=== PATIENT | male | born 1970 | race Caucasian/White ===

== ENCOUNTER 2016-03-02 21:22 | Emergency (ER) | payer OTHER ==
--- NOTE | 2016-03-03 00:17 | DIAGNOSTIC IMAGING REPORT ---
PROCEDURE: CT ABDOMEN/PELVIS W/O CONTRAST INDICATION: Right flank pain and hematuria, initial encounter TECHNIQUE: Noncontrast axial images were obtained of the entire abdomen and pelvis with sagittal and coronal reformations. COMPARISON: CT abdomen/pelvis 07/18/2013. FINDINGS: ABDOMEN: 3 mm right UVJ calculus with mild right hydroureteronephrosis. There is a 6.7 x 6.5 x 5.6 mm proximal left ureteral calculus with mild left ureterohydronephrosis There is a punctate mid left renal nonobstructing calculus. Lung bases are clear. Heart size is normal. Contracted gallbladder with tiny calcified gallstone. Liver, pancreas, spleen and adrenal glands are normal. Normal abdominal aorta. Mild descending colon diverticulosis. PELVIS: Normal appendix. No pelvic mass, inflammatory changes or free fluid. Bones are unremarkable. IMPRESSION: 1. 3 mm right UVJ calculus with mild right hydroureteronephrosis 2. 6.7 x 6.5 x 5.6 ml in proximal left ureteral calculus with mild left hydroureteronephrosis 3. Nonobstructing punctate left renal calculus 4. Cholelithiasis 5. Diverticulosis 6. Results discussed with Dr. Rodarte All CT scans at this facility use dose modulation, iterative reconstruction, and/or weight-based dosing when appropriate to reduce radiation dose to as low as reasonably achievable.
--- NOTE | 2016-03-03 01:04 | ED NURSING NOTES ---
Clinical Report - Nurses [facility] [address] [place] [address] 03/02/2016 21:22 Patient: KELL MEDINA TRIAGE Triage time 21:37. Acuity: LEVEL 2. Chief Complaint: PAIN WITH URINATION and FREQUENCY VOIDING (Right flank pain). 21:42. Alert. SEPSIS SCREEN: Sepsis Screen. Negative (no infection suspected/documented). --21:42 Fernie Mcdonald R.N. 21:36 03/02/16. BP: 185/117. HR: 89. RR: 18. O2 saturation: 98%. Temp: 98.4 F (oral). Pain level now: 09/02. --21:42 Fernie Mcdonald R.N. Weight: 83.9 kg. Height/Length: 68 inches. BMI: 28.1. --21:40 Fernie Mcdonald R.N. Medications Adderall Oral 20 mg, daily (10mg in afternoon). Aleve Oral. Flomax Oral 0.4 mg, daily. --21:38 Fernie Mcdonald R.N. OxyCODONE HCl Oral 5 mg, as needed. --21:38 Fernie Mcdonald R.N. Medication/allergy information source: the patient. --21:42 Fernie Mcdonald R.N. Allergies Nitrous oxide . --21:38 Fernie Mcdonald R.N. History Arrived by private vehicle. Historian: patient. Accompanied by family. Primary physician (Tavares). This started yesterday. ( Patient thinks he has another kidney stone states he has passed 3 in the last couple months, also thinks he may have an UTI). Treatment [employer]: (Oxycodone, Flomax). PAST MEDICAL HX: Immunizations: up-to-date. SOCIAL HX: Never smoker. Occasional alcohol use. No drug use. No infectious disease exposure. ABUSE ASSESSMENT: No report of abuse. FALL RISK ASSESSMENT: Fall risk assessment completed. No fall risk identified. NUTRITIONAL RISK ASSESSMENT: The nutritional risk assessment revealed no deficiencies. FUNCTIONAL ASSESSMENT: Functional assessment: no impairments noted. LEARNING NEEDS ASSESSMENT: The learning needs assessment revealed no barriers. SKIN INTEGRITY ASSESSMENT: Skin integrity risk assessment completed. No skin integrity risk identified. --21:42 Fernie Mcdonald R.N. PROBLEMS: Ureterolithiasis. Urinary Calculi. Nephrolithiasis. --21:39 Fernie Mcdonald R.N. ADDITIONAL SURGERIES: no known surgeries. Interventions ID band on patient. --21:42 Fernie Mcdonald R.N. PHYSICAL ASSESSMENT Ambulatory to room. GENERAL / NEURO / PSYCH: Alert. Oriented X 4. Appears in no acute distress. HEENT: Mucous membranes are pink. RESPIRATORY: Respirations not labored. Breath sounds within normal limits. CVS: Normal heart rate and rhythm. Capillary refill less than 2 seconds. GI / : Abdomen soft. Bowel sounds within normal limits. Pain after urination that is associated with urgency and frequency. He has had frequency of urination associated with pain, burning and urgency. SKIN: Skin is warm and dry. --21:55 Valentin Banuelos R.N. NURSING PROGRESS NOTES 21:43. Patient ID band checked for patient name and birthdate: patient confirmed. Clean catch urine collected with return of yellow-colored clear urine; sample sent to lab for urinalysis. Specimen labeled in the presence of the patient. --21:43 Fernie Mcdonald R.N. Head of bed elevated. The patient is calm and resting quietly. Call light placed in reach. Side rails up x 1. Bed placed in lowest position. Brakes of bed on. --21:56 Valentin Banuelos R.N. 22:54 03/02/2016 Site #1 started via IV in the right antecubital space with an 20g angiocath; one attempt. Blood drawn: rainbow set. Labeled in the presence of the patient and sent to the lab. Saline lock flushed with 10 mL saline. --23:19 Yobani Ramon R.N. 23:27 03/02/2016 Started IV Fluids IV NS (Saline); bolus of 1000 mL wide open then over 1 hour(s) via site #1. Allergies verified and confirmed 5 rights. IV patency established. IV site checked: no pain, redness, or swelling. IV flushed thoroughly pre- and post-medication administration. --23:27 Valentin Banuelos R.N. 23:29 03/02/2016 Toradol IVP 30 mg given over 2 minute(s) via site #1. Allergies verified and confirmed 5 rights. IV patency established. IV site checked: no pain, redness, or swelling. IV flushed thoroughly pre- and post-medication administration. IVP given by RN. --23:29 Valentin Banuelos R.N. 23:29 03/02/2016 Dilaudid (HYDROmorphone HCl PF) IVP 1 mg given over 2 minute(s) via site #1. Allergies verified, confirmed 5 rights and sedative warning given to the patient. IV patency established. IV site checked: no pain, redness, or swelling. IV flushed thoroughly pre- and post-medication administration. IVP given by RN. --23:29 Valentin Banuelos R.N. The patient reports no complaints and he is calm and resting quietly. Overall patient status is improved- he states feels better. Call light placed in reach. Side rails up x 1. --00:09 Valentin Banuelos R.N. 00:08 03/03/16. BP: 148/102. HR: 97. RR: 16. O2 saturation: 93%. Pain level now: 0/10. --00:09 Valentin Banuelos R.N. DISPOSITION / DISCHARGE 01:22 03/03/16. BP: 145/91. HR: 89. RR: 16. O2 saturation: 94%. Temp: 97.8 F (oral). Pain level now: 0/10. --01:23 Valentin Banuelos R.N. Condition at departure: improved. The goals identified in the patient's plan of care were met. No learning barriers present. Discharge instructions provided and reviewed with the patient and spouse. Reviewed medication(s) side effects, precautions, dosing and course information. Prescription(s) given to the patient. Reviewed referral to a urologist. Patient verbalized understanding. Written instructions provided in [place]. The patient was discharged home and accompanied by spouse. He left the Emergency Department ambulatory and via private vehicle. Spouse driving. FALL RISK ASSESSMENT: Fall risk assessment completed. No fall risk identified. --: Valentin Banuelos R.N. 01:03/03/2016 Zofran (Ondansetron HCl) IVP 8 mg given over 2 minute(s) via site #1. Allergies verified and confirmed 5 rights. IV patency established. IV site checked: no pain, redness, or swelling. IV flushed thoroughly pre- and post-medication administration. IVP given by RN. --01: Valentin Banuelos R.N. 01:03/03/2016 Site #1 removed upon discharge. Pressure dressing applied. --01: Valentin Banuelos R.N. 01:03/03/2016 IV Fluids IV NS Discontinued: completed. Total amount infused: 1000 mL. IV patency established. IV site checked: no pain, redness, or swelling. IV flushed thoroughly. --01: Valentin Banuelos R.N. Departure time: 0124 AM. --: Valentin Banuelos R.N. Locked/Released at 03/03/2016 1:31 by Valentin Banuelos R.N.
--- NOTE | 2016-03-03 01:04 | ED CLINICAL REPORT ---
Clinical Report - Physicians/Mid Levels [facility] [address] [place] [address] 03/02/2016 21:22 Patient: KELL MEDINA Time Seen: 22:26. Arrived- By private vehicle. Historian- patient. HISTORY OF PRESENT ILLNESS Chief Complaint: FLANK PAIN. At its maximum, severity described as severe. When seen in the E.D., severity described as moderate. Modifying factors. Not worsened by anything. Not relieved by anything. It is described as "pain" and it is described as located in the left flank. This started about 3 months ago and is still present. It has been intermittent. The patient has had nausea and vomiting. No loss of appetite or diarrhea. (Pt states he was dx with a kidney stone 3 months ago. He was given Flomax at the time, and sx seemed to dianne, but would intermittently resurface. Pt states he never saw a stone pass. Pt began to have escalation of sx on the L, and was seen by his PCP, but no imaging done. Pt was treated presumptively for a stone. Pt states that now, he has a pain on the R, and is concerned about what is going on.). Similar symptoms previously: Recent medical care: Not recently seen/assessed. REVIEW OF SYSTEMS No constipation, black stools, hematemesis, difficulty with urination or pain with urination. No urinary frequency, bloody stools, fever, headache or sore throat. No blurred vision, chest pain, difficulty breathing, cough or joint pain. No skin rash, chills or back pain. All systems otherwise negative, except as recorded above. PAST HISTORY Problems: Asthma. Nephrolithiasis. Additional Surgeries: no known surgeries. Medications: OxyCODONE HCl Oral 5 mg, as needed. Adderall Oral 20 mg, daily (10mg in afternoon). Aleve Oral. Flomax Oral 0.4 mg, daily. Allergies: Nitrous oxide . SOCIAL HISTORY Never smoker. Occasional alcohol use. No drug use. ADDITIONAL NOTES The nursing notes have been reviewed. PHYSICAL EXAM Vital Signs: 03/02/2016 21:36 BP: 185/117. HR: 89. RR: 18. O2 saturation: 98%. Temp: 98.4 F. Pain level now: 09/02. Have been reviewed. Appearance: Alert. Oriented X3. No acute distress. (Pt appears moderately uncomfortable.). Eyes: Pupils equal, round and reactive to light. Eyes normal inspection. ENT: Nose normal. Neck: Normal inspection. Neck supple. CVS: Normal heart rate and rhythm. Heart sounds normal. Pulses normal. Respiratory: No respiratory distress. Breath sounds normal. Abdomen: Soft. Mild tenderness in the left lower quadrant (L flank). No guarding or rebound tenderness. Back: Normal inspection. No CVA tenderness. Skin: Skin warm and dry. Normal skin color. No rash. Normal skin turgor. Extremities: Extremities exhibit normal ROM. No lower extremity edema. Neuro: Oriented X 3. No motor deficit. No sensory deficit. LABS, X-RAYS, AND EKG Abdominal CT: Normal aorta. Normal liver, spleen, pancreas, gallbladder and adrenals. A urinary calculus is present in the right distal ureter and left proximal ureter (L hydronephrosis, 6+ mm stone; R 3 mm stone, no hydro). Appendix normal. No mass. No free fluid. No bony lesion. No diverticulitis. Study type: renal stone evaluation; abdomen and pelvis. Abdominal CT performed without contrast. The study was independently viewed by me, interpreted by the radiologist and contemporaneously by me and discussed with the radiologist. Prior studies were not available for comparison. Laboratory Tests: UA-Culture if indicated: (HAI: 03/02/2016 21:43) ( MsgRcvd 03/02/2016 21:56) Final results Test Result Flag Units (Reference) URINE COLOR YELLOW URINE APPEARANCE CLEAR URINE GLUCOSE NEGATIVE (NEGATIVE) URINE BILIRUBIN NEGATIVE (NEGATIVE) URINE KETONE NEGATIVE (NEGATIVE) URINE SPECIFIC GRAVITY 1.015 (1.010-1.030) URINE PH 7.5 (5.0-8.0) URINE PROTEIN NEGATIVE (NEGATIVE) URINE UROBILINOGEN 0.2 EU/dL (0.2-1.0) URINE NITRITE NEGATIVE (NEGATIVE) URINE BLOOD 2+ (NEGATIVE) URINE LEUK ESTERASE NEGATIVE (NEGATIVE) URINE RBC 10-25 rbc/hpf (0-1) URINE WBC 0-1 wbc/hpf (0-1) URINE EPITHELIAL CELLS 0-1 EPI/hpf (0-5) URINE BACTERIA NONE SEEN (NONE SEEN) URINE COMMENT CULT NOT INDICATED URINE CULTURES ARE SET-UP BASED ON THE FOLLOWING CRITERIA:POSITIVE NITRITEPOSITIVE LEUKOCYTE ESTERASEGREATER THAN 10 WHITE BLOOD CELLSMODERATE (2+) OR GREATER BACTERIA . Pulse Oximetry: 03/02/2016 21:36 O2 saturation: 98%. (FIO2 - room air). Interpretation: normal. PROGRESS AND PROCEDURES Course of Care: Pt was treated with IV fluids, Toradol, Dilaudid, and Zofran. He was worked up with a CT scan, and found to have bilateral ureterolithiasis; however, one of the stones was only 3mm, and was at the UVJ, and I felt that passage was imminent. I did d/w pt that the other stone is large, and may not pass spontaneously, and that it is important that pt f/u with urology. Patient counseled in person regarding the patient's stable condition, test results, diagnosis and need for follow-up. Concerns were addressed. Old medical records reviewed. Disposition: Discharged. Condition: stable and improved. CLINICAL IMPRESSION Ureterolithiasis in the right ureter and left ureter with renal colic. INSTRUCTIONS Drink plenty of fluids. (Your CT scan shows a stone on each side. The one on the right is just about to pop into the bladder, and should pass easily. The one on the left is larger (nearly 7 mm across), and is up high in your ureter. This may have trouble passing, and because of this, you will need to follow up with a urologist.). Warnings: SEDATIVE MEDICATION: You were given sedative medication during your visit. Do not drive or operate dangerous machinery for 6 hours. GENERAL WARNINGS: Return or contact your physician immediately if your condition worsens or changes unexpectedly, if not improving as expected, or if other problems arise. Your Current Medications: CONTINUE TAKING THE FOLLOWING MEDICATIONS: Adderall Oral : 20 mg daily, 10mg in afternoon. Aleve Oral. Flomax Oral : 0.4 mg daily. OxyCODONE HCl Oral : 5 mg, prn. Prescription Medications: Zofran (orally disintegrating tablets) 4 mg: take 1-2 orally every 6 hours as needed for nausea. Dispense fifteen (15). No refill. Substitution is permissible. Oxycodone/APAP 5 mg/325 mg: take 1-2 tablets orally every 4 hours as needed for pain. Dispense twenty-five (25). No refill. Understanding of the discharge instructions verbalized by patient and family. Follow-up with: Rashid Odom MD, Urology, , [address] [address]; Jose Tillman MD, Urology, , [facility] [address] [facility], [address]; Francois John MD, Urology, , [address] [address]; Ata Yan MD, Urology, , [facility] [address] [facility], [address] Follow up. Call for the next available appointment. (Electronically signed by Anabela Rodarte MD 03/07/2016 21:48)
--- NOTE | 2016-03-03 01:04 | ED ORDER SUMMARY ---
..... Patient: KELL MEDINA OrderSheet [facility] VisitID: [id number] [address] [place] [address] 45y, M Registration Date/Time: 03/02/2016 ORDER SHEET Weight: 83.9 kg Allergies: Nitrous oxide GENERAL ORDERS: UA-Culture if indicated Urgent (21:43 03/02/2016 JQuivey R.NNai per protocol) (Ack 21:56 TBergley) (0:16 HOS[address] R[address] CT Abd/Pel wo Cont Urgent (23:08 03/02/2016 Apple YE) (23:21 RFay) MEDICATION ORDERS: IV FLUIDS: Toradol IV 30 mg (NOW) (23:17 03/02/2016 Apple YE) (23:29 HOShaughnessy R.N.) Dilaudid IV 1 mg (HIGH ALERT MEDICATION, NOW) (23:17 03/02/2016 Apple YE) (23:29 HOShaughnessy R.N.) IV NS : initial bolus 1000 mL (1000 mL/hr), then none - (NOW) (23:17 03/02/2016 Apple YE) (23:27 HOShaughnessy R.N.) Zofran IV 8 mg (NOW) (01:14 03/03/2016 Apple YE) (1:23 HOShaughnessy R.N.) ORDER SHEET NOTES: [Electronically signed by Valentin Banuelos R.N. (01:31 03/03/2016)] [Electronically signed by Anabela Rodarte MD (21:48 03/07/2016)] [Electronically locked/signed by Valentin Banuelos R.N. (01:31 03/03/2016)]
--- NOTE | 2016-03-03 01:04 | ED CLINICAL REPORT ---
Clinical Report - Physicians/Mid Levels [facility] [address] [place] [address] 03/02/2016 21:22 Patient: KELL MEDINA Time Seen: 22:26. Arrived- By private vehicle. Historian- patient. HISTORY OF PRESENT ILLNESS Chief Complaint: FLANK PAIN. At its maximum, severity described as severe. When seen in the E.D., severity described as moderate. Modifying factors. Not worsened by anything. Not relieved by anything. It is described as "pain" and it is described as located in the left flank. This started about 3 months ago and is still present. It has been intermittent. The patient has had nausea and vomiting. No loss of appetite or diarrhea. (Pt states he was dx with a kidney stone 3 months ago. He was given Flomax at the time, and sx seemed to dianne, but would intermittently resurface. Pt states he never saw a stone pass. Pt began to have escalation of sx on the L, and was seen by his PCP, but no imaging done. Pt was treated presumptively for a stone. Pt states that now, he has a pain on the R, and is concerned about what is going on.). Similar symptoms previously: Recent medical care: Not recently seen/assessed. REVIEW OF SYSTEMS No constipation, black stools, hematemesis, difficulty with urination or pain with urination. No urinary frequency, bloody stools, fever, headache or sore throat. No blurred vision, chest pain, difficulty breathing, cough or joint pain. No skin rash, chills or back pain. All systems otherwise negative, except as recorded above. PAST HISTORY Problems: Asthma. Nephrolithiasis. Additional Surgeries: no known surgeries. Medications: OxyCODONE HCl Oral 5 mg, as needed. Adderall Oral 20 mg, daily (10mg in afternoon). Aleve Oral. Flomax Oral 0.4 mg, daily. Allergies: Nitrous oxide . SOCIAL HISTORY Never smoker. Occasional alcohol use. No drug use. ADDITIONAL NOTES The nursing notes have been reviewed. PHYSICAL EXAM Vital Signs: 03/02/2016 21:36 BP: 185/117. HR: 89. RR: 18. O2 saturation: 98%. Temp: 98.4 F. Pain level now: 09/02. Have been reviewed. Appearance: Alert. Oriented X3. No acute distress. (Pt appears moderately uncomfortable.). Eyes: Pupils equal, round and reactive to light. Eyes normal inspection. ENT: Nose normal. Neck: Normal inspection. Neck supple. CVS: Normal heart rate and rhythm. Heart sounds normal. Pulses normal. Respiratory: No respiratory distress. Breath sounds normal. Abdomen: Soft. Mild tenderness in the left lower quadrant (L flank). No guarding or rebound tenderness. Back: Normal inspection. No CVA tenderness. Skin: Skin warm and dry. Normal skin color. No rash. Normal skin turgor. Extremities: Extremities exhibit normal ROM. No lower extremity edema. Neuro: Oriented X 3. No motor deficit. No sensory deficit. LABS, X-RAYS, AND EKG Abdominal CT: Normal aorta. Normal liver, spleen, pancreas, gallbladder and adrenals. A urinary calculus is present in the right distal ureter and left proximal ureter (L hydronephrosis, 6+ mm stone; R 3 mm stone, no hydro). Appendix normal. No mass. No free fluid. No bony lesion. No diverticulitis. Study type: renal stone evaluation; abdomen and pelvis. Abdominal CT performed without contrast. The study was independently viewed by me, interpreted by the radiologist and contemporaneously by me and discussed with the radiologist. Prior studies were not available for comparison. Laboratory Tests: UA-Culture if indicated: (HAI: 03/02/2016 21:43) ( MsgRcvd 03/02/2016 21:56) Final results Test Result Flag Units (Reference) URINE COLOR YELLOW URINE APPEARANCE CLEAR URINE GLUCOSE NEGATIVE (NEGATIVE) URINE BILIRUBIN NEGATIVE (NEGATIVE) URINE KETONE NEGATIVE (NEGATIVE) URINE SPECIFIC GRAVITY 1.015 (1.010-1.030) URINE PH 7.5 (5.0-8.0) URINE PROTEIN NEGATIVE (NEGATIVE) URINE UROBILINOGEN 0.2 EU/dL (0.2-1.0) URINE NITRITE NEGATIVE (NEGATIVE) URINE BLOOD 2+ (NEGATIVE) URINE LEUK ESTERASE NEGATIVE (NEGATIVE) URINE RBC 10-25 rbc/hpf (0-1) URINE WBC 0-1 wbc/hpf (0-1) URINE EPITHELIAL CELLS 0-1 EPI/hpf (0-5) URINE BACTERIA NONE SEEN (NONE SEEN) URINE COMMENT CULT NOT INDICATED URINE CULTURES ARE SET-UP BASED ON THE FOLLOWING CRITERIA:POSITIVE NITRITEPOSITIVE LEUKOCYTE ESTERASEGREATER THAN 10 WHITE BLOOD CELLSMODERATE (2+) OR GREATER BACTERIA . Pulse Oximetry: 03/02/2016 21:36 O2 saturation: 98%. (FIO2 - room air). Interpretation: normal. PROGRESS AND PROCEDURES Course of Care: Pt was treated with IV fluids, Toradol, Dilaudid, and Zofran. He was worked up with a CT scan, and found to have bilateral ureterolithiasis; however, one of the stones was only 3mm, and was at the UVJ, and I felt that passage was imminent. I did d/w pt that the other stone is large, and may not pass spontaneously, and that it is important that pt f/u with urology. Patient counseled in person regarding the patient's stable condition, test results, diagnosis and need for follow-up. Concerns were addressed. Old medical records reviewed. Disposition: Discharged. Condition: stable and improved. CLINICAL IMPRESSION Ureterolithiasis in the right ureter and left ureter with renal colic. INSTRUCTIONS Drink plenty of fluids. (Your CT scan shows a stone on each side. The one on the right is just about to pop into the bladder, and should pass easily. The one on the left is larger (nearly 7 mm across), and is up high in your ureter. This may have trouble passing, and because of this, you will need to follow up with a urologist.). Warnings: SEDATIVE MEDICATION: You were given sedative medication during your visit. Do not drive or operate dangerous machinery for 6 hours. GENERAL WARNINGS: Return or contact your physician immediately if your condition worsens or changes unexpectedly, if not improving as expected, or if other problems arise. Your Current Medications: CONTINUE TAKING THE FOLLOWING MEDICATIONS: Adderall Oral : 20 mg daily, 10mg in afternoon. Aleve Oral. Flomax Oral : 0.4 mg daily. OxyCODONE HCl Oral : 5 mg, prn. Prescription Medications: Zofran (orally disintegrating tablets) 4 mg: take 1-2 orally every 6 hours as needed for nausea. Dispense fifteen (15). No refill. Substitution is permissible. Oxycodone/APAP 5 mg/325 mg: take 1-2 tablets orally every 4 hours as needed for pain. Dispense twenty-five (25). No refill. Understanding of the discharge instructions verbalized by patient and family. Follow-up with: Rashid Odom MD, Urology, , [address] [address]; Jose Tillman MD, Urology, , [facility] [address] [facility], [address]; Francois John MD, Urology, , [address] [address]; Ata Yan MD, Urology, , [facility] [address] [facility], [address] Follow up. Call for the next available appointment. (Electronically signed by Anabela Rodarte MD 03/07/2016 21:48)
--- NOTE | 2016-03-03 01:04 | ED ORDER SUMMARY ---
..... Patient: KELL MEDINA OrderSheet [facility] VisitID: [id number] [address] [place] [address] 45y, M Registration Date/Time: 03/02/2016 ORDER SHEET Weight: 83.9 kg Allergies: Nitrous oxide GENERAL ORDERS: UA-Culture if indicated Urgent (21:43 03/02/2016 JQuivey R.NNai per protocol) (Ack 21:56 TBergley) (0:16 [address] R[address] CT Abd/Pel wo Cont Urgent (23:08 03/02/2016 Apple YE) (23:21 RFay) MEDICATION ORDERS: IV FLUIDS: Toradol IV 30 mg (NOW) (23:17 03/02/2016 Apple YE) (23:29 HOShaughnessy R.N.) Dilaudid IV 1 mg (HIGH ALERT MEDICATION, NOW) (23:17 03/02/2016 Apple YE) (23:29 HOShaughnessy R.N.) IV NS : initial bolus 1000 mL (1000 mL/hr), then none - (NOW) (23:17 03/02/2016 Apple YE) (23:27 HOShaughnessy R.N.) Zofran IV 8 mg (NOW) (01:14 03/03/2016 Apple YE) (1:23 HOShaughnessy R.N.) ORDER SHEET NOTES: [Electronically signed by Valentin Banuelos R.N. (01:31 03/03/2016)] [Electronically signed by Anabela Rodarte MD (21:48 03/07/2016)] [Electronically locked/signed by Valentin Banuelos R.N. (01:31 03/03/2016)]
--- NOTE | 2016-03-07 21:49 | ED DISCHARGE INSTRUCTIONS ---
Patient: KELL MEDINA General Instructions [facility] VisitID: [id number] [place] [address] 45y, M Registration Date/Time: 03/02/2016 Ureterolithiasis in the right ureter and left ureter with renal colic. INSTRUCTIONS Drink plenty of fluids. (Your CT scan shows a stone on each side. The one on the right is just about to pop into the bladder, and should pass easily. The one on the left is larger (nearly 7 mm across), and is up high in your ureter. This may have trouble passing, and because of this, you will need to follow up with a urologist.). Warnings: SEDATIVE MEDICATION: You were given sedative medication during your visit. Do not drive or operate dangerous machinery for 6 hours. GENERAL WARNINGS: Return or contact your physician immediately if your condition worsens or changes unexpectedly, if not improving as expected, or if other problems arise. Your Current Medications: CONTINUE TAKING THE FOLLOWING MEDICATIONS: Adderall Oral : 20 mg daily, 10mg in afternoon. Aleve Oral. Flomax Oral : 0.4 mg daily. OxyCODONE HCl Oral : 5 mg, prn. Prescription Medications: Zofran (orally disintegrating tablets) 4 mg: take 1-2 orally every 6 hours as needed for nausea. Dispense fifteen (15). No refill. Substitution is permissible. Oxycodone/APAP 5 mg/325 mg: take 1-2 tablets orally every 4 hours as needed for pain. Dispense twenty-five (25). No refill. Understanding of the discharge instructions verbalized by patient and family. Follow-up with: Rashid Odom MD, Urology, , [address] [facility] [facility], [address]; Jose Tillman MD, Urology, , [facility] [address] [facility], [address]; Francois John MD, Urology, , [address], [address]; Ata Yan MD, Urology, , [facility] [address] [facility], [address] Follow up. Call for the next available appointment. ADDITIONAL INFORMATION Kidney Stone (W/ Colic) The sharp cramping pain and nausea/vomiting that you have is due to a small stone which has formed in the kidney and is now passing down a narrow tube (ureter) on its way to your bladder. Once it reaches your bladder, the pain will stop. The stone may pass in your urine stream in one piece. [The size may be 1/16" to 1/4" (1-6mm)]. Or, the stone may also break up into arabella fragments which you may not even notice. Once you have had a kidney stone, you are at risk for developing another one in the future. Home Care: Drink plenty of fluids (at least 8 to 10 glasses of water a day). Most stones will pass on their own, but may take from a few hours to a few days. Sometimes the stone is too large to pass by itself and special methods will have to be used to remove the stone. Each time you urinate, do so in a jar. Pour the urine from the jar through the strainer and into the toilet. Continue doing this until 24 hours after your pain stops. By then, if there was a kidney stone, it should pass from your bladder. Some stones dissolve into sand-like particles and pass right through the strainer. In that case, you wont ever see a stone. Save any stone that you find in the strainer and bring it to your doctor for analysis. It may be possible to prevent certain types of stones from forming. Therefore, it is important to know what kind of stone you have. Try to stay as active as possible since this will help the stone pass. Do not stay in bed unless your pain prevents you from getting up. You may notice a red, pink or brown color to your urine. This is normal while passing a kidney stone. Follow Up with your doctor or return to this facility if the pain lasts more than 48 hours. Get Prompt Medical Attention if any of the following occur: Pain that is not controlled by the medicine given Repeated vomiting or unable to keep down fluids Weakness, dizziness or fainting Fever of 100.4F (38C) or higher, or as directed by your healthcare provider Passage of solid red or brown urine (can't see through it) or urine with lots of blood clots Unable to pass urine for 8 hours and increasing bladder pressure You have been given the following additional information: Kidney Stone W/ Colic (Electronically signed by Anabela Rodarte MD 03/07/2016 21:48)
--- NOTE | 2016-03-07 21:49 | ED DISCHARGE INSTRUCTIONS ---
Patient: KELL MEDINA General Instructions [facility] VisitID: [id number] [place] [address] 45y, M Registration Date/Time: 03/02/2016 Ureterolithiasis in the right ureter and left ureter with renal colic. INSTRUCTIONS Drink plenty of fluids. (Your CT scan shows a stone on each side. The one on the right is just about to pop into the bladder, and should pass easily. The one on the left is larger (nearly 7 mm across), and is up high in your ureter. This may have trouble passing, and because of this, you will need to follow up with a urologist.). Warnings: SEDATIVE MEDICATION: You were given sedative medication during your visit. Do not drive or operate dangerous machinery for 6 hours. GENERAL WARNINGS: Return or contact your physician immediately if your condition worsens or changes unexpectedly, if not improving as expected, or if other problems arise. Your Current Medications: CONTINUE TAKING THE FOLLOWING MEDICATIONS: Adderall Oral : 20 mg daily, 10mg in afternoon. Aleve Oral. Flomax Oral : 0.4 mg daily. OxyCODONE HCl Oral : 5 mg, prn. Prescription Medications: Zofran (orally disintegrating tablets) 4 mg: take 1-2 orally every 6 hours as needed for nausea. Dispense fifteen (15). No refill. Substitution is permissible. Oxycodone/APAP 5 mg/325 mg: take 1-2 tablets orally every 4 hours as needed for pain. Dispense twenty-five (25). No refill. Understanding of the discharge instructions verbalized by patient and family. Follow-up with: Rashid Odom MD, Urology, , [address] [facility], [address]; Jose Tillman MD, Urology, , [facility] [address] [facility], [address]; Francois John MD, Urology, , [address], [address]; Ata Yan MD, Urology, , [facility] [address] [facility] [place], [address] Follow up. Call for the next available appointment. ADDITIONAL INFORMATION Kidney Stone (W/ Colic) The sharp cramping pain and nausea/vomiting that you have is due to a small stone which has formed in the kidney and is now passing down a narrow tube (ureter) on its way to your bladder. Once it reaches your bladder, the pain will stop. The stone may pass in your urine stream in one piece. [The size may be 1/16" to 1/4" (1-6mm)]. Or, the stone may also break up into arabella fragments which you may not even notice. Once you have had a kidney stone, you are at risk for developing another one in the future. Home Care: Drink plenty of fluids (at least 8 to 10 glasses of water a day). Most stones will pass on their own, but may take from a few hours to a few days. Sometimes the stone is too large to pass by itself and special methods will have to be used to remove the stone. Each time you urinate, do so in a jar. Pour the urine from the jar through the strainer and into the toilet. Continue doing this until 24 hours after your pain stops. By then, if there was a kidney stone, it should pass from your bladder. Some stones dissolve into sand-like particles and pass right through the strainer. In that case, you wont ever see a stone. Save any stone that you find in the strainer and bring it to your doctor for analysis. It may be possible to prevent certain types of stones from forming. Therefore, it is important to know what kind of stone you have. Try to stay as active as possible since this will help the stone pass. Do not stay in bed unless your pain prevents you from getting up. You may notice a red, pink or brown color to your urine. This is normal while passing a kidney stone. Follow Up with your doctor or return to this facility if the pain lasts more than 48 hours. Get Prompt Medical Attention if any of the following occur: Pain that is not controlled by the medicine given Repeated vomiting or unable to keep down fluids Weakness, dizziness or fainting Fever of 100.4F (38C) or higher, or as directed by your healthcare provider Passage of solid red or brown urine (can't see through it) or urine with lots of blood clots Unable to pass urine for 8 hours and increasing bladder pressure You have been given the following additional information: Kidney Stone W/ Colic (Electronically signed by Anabela Rodarte MD 03/07/2016 21:48)
--- NOTE | 2016-03-07 21:49 | ED MED RECONCILIATION SUMMARY ---
Patient: KELL MEDINA Medication Reconciliation Report [facility] VisitID: [id number] [address] [place] [address] 45y, M Registration Date/Time: 03/02/2016 Weight: 83.9 kg Height/Length: 68 in. BMI: 28.1 ALLERGIES: Nitrous oxide The patient's Home Medications are listed below: CONTINUE TAKING THE FOLLOWING MEDICATIONS: Adderall Oral 20 mg, daily, 10mg in afternoon Aleve Oral Flomax Oral 0.4 mg, daily OxyCODONE HCl Oral 5 mg The source(s) of the original Home Medication information: patient The following Medications were given to the patient in the Emergency Department: IV NS IV Fluids bolus 1000 mL wide open, administered: 03/02/2016 11:27:00 PM Toradol [IVP] IVP 30 mg, administered: 03/02/2016 11:29:00 PM Dilaudid [IVP] IVP 1 mg, administered: 03/02/2016 11:29:00 PM Zofran [IVP] IVP 8 mg, administered: 03/03/2016 1:23:00 AM The following Medications were prescribed to the patient: Zofran (orally disintegrating tablets) 4 mg: take 1-2 orally every 6 hours as needed for nausea. Dispense fifteen (15). No refill. Substitution is permissible. -- Anabela Rodarte MD Oxycodone/APAP 5 mg/325 mg: take 1-2 tablets orally every 4 hours as needed for pain. Dispense twenty-five (25). No refill. -- Anabela Rodarte MD
--- NOTE | 2016-03-07 21:49 | ED MAR SUMMARY ---
..... Medication Administration Record [facility] [address] [place] [address] Patient: KELL MEDINA Visit ID: [id number] 45y, M Weight: 83.9 kg Height/Length: 68 in BMI: 28.1 ALLERGIES: Nitrous oxide Start 23:27 03/02/2016 Valentin Banuelos R.N., Stop 01:24 03/03/2016 Valentin Banuelos R.N. Medication Administered: IV NS (SALINE), Dose: IV Fluids over 1 hour(s), Bolus: 1000 mL wide open, Site: #1 right AC. Medication Ordered: IV NS : initial bolus 1000 mL (1000 mL/hr), then none - (NOW). Given 23:03/02/2016 Valentin Banuelos R.N. Medication Administered: TORADOL [IVP], Dose: 30 mg IVP over 2 minute(s), Site: #1 right AC. Medication Ordered: Toradol IV 30 mg (NOW). Given 23:03/02/2016 Valentin Banuelos R.N. Medication Administered: DILAUDID [IVP] (HYDROMORPHONE HCL PF), Dose: 1 mg IVP over 2 minute(s), Site: #1 right AC. Medication Ordered: Dilaudid IV 1 mg (HIGH ALERT MEDICATION, NOW). Given :03/03/2016 Valentin Banuelos R.N. Medication Administered: ZOFRAN [IVP] (ONDANSETRON HCL), Dose: 8 mg IVP over 2 minute(s), Site: #1 right AC. Medication Ordered: Zofran IV 8 mg (NOW).
--- NOTE | 2016-03-07 21:49 | ED MED RECONCILIATION SUMMARY ---
Patient: KELL MEDINA Medication Reconciliation Report [facility] VisitID: [id number] [address] [place] [address] 45y, M Registration Date/Time: 03/02/2016 Weight: 83.9 kg Height/Length: 68 in. BMI: 28.1 ALLERGIES: Nitrous oxide The patient's Home Medications are listed below: CONTINUE TAKING THE FOLLOWING MEDICATIONS: Adderall Oral 20 mg, daily, 10mg in afternoon Aleve Oral Flomax Oral 0.4 mg, daily OxyCODONE HCl Oral 5 mg The source(s) of the original Home Medication information: patient The following Medications were given to the patient in the Emergency Department: IV NS IV Fluids bolus 1000 mL wide open, administered: 03/02/2016 11:27:00 PM Toradol [IVP] IVP 30 mg, administered: 03/02/2016 11:29:00 PM Dilaudid [IVP] IVP 1 mg, administered: 03/02/2016 11:29:00 PM Zofran [IVP] IVP 8 mg, administered: 03/03/2016 1:23:00 AM The following Medications were prescribed to the patient: Zofran (orally disintegrating tablets) 4 mg: take 1-2 orally every 6 hours as needed for nausea. Dispense fifteen (15). No refill. Substitution is permissible. -- Anabela Rodarte MD Oxycodone/APAP 5 mg/325 mg: take 1-2 tablets orally every 4 hours as needed for pain. Dispense twenty-five (25). No refill. -- Anabela Rodarte MD
--- NOTE | 2016-03-07 21:49 | ED MAR SUMMARY ---
..... Medication Administration Record [facility] [address] [place] [address] Patient: KELL MEDINA Visit ID: [id number] 45y, M Weight: 83.9 kg Height/Length: 68 in BMI: 28.1 ALLERGIES: Nitrous oxide Start 23:27 03/02/2016 Valentin Banuelos R.N., Stop 01:24 03/03/2016 Valentin Banuelos R.N. Medication Administered: IV NS (SALINE), Dose: IV Fluids over 1 hour(s), Bolus: 1000 mL wide open, Site: #1 right AC. Medication Ordered: IV NS : initial bolus 1000 mL (1000 mL/hr), then none - (NOW). Given 23:03/02/2016 Valentin Banuelos R.N. Medication Administered: TORADOL [IVP], Dose: 30 mg IVP over 2 minute(s), Site: #1 right AC. Medication Ordered: Toradol IV 30 mg (NOW). Given 23:03/02/2016 Valentin Banuelos R.N. Medication Administered: DILAUDID [IVP] (HYDROMORPHONE HCL PF), Dose: 1 mg IVP over 2 minute(s), Site: #1 right AC. Medication Ordered: Dilaudid IV 1 mg (HIGH ALERT MEDICATION, NOW). Given :03/03/2016 Valentin Banuelos R.N. Medication Administered: ZOFRAN [IVP] (ONDANSETRON HCL), Dose: 8 mg IVP over 2 minute(s), Site: #1 right AC. Medication Ordered: Zofran IV 8 mg (NOW).
== END 2016-03-03 01:24 | disposition home or self-care (01) ==
LOC: ED SRH 21:22
DX: N20.1 Calculus of ureter (principal); Z79.891 Long term (current) use of opiate analgesic; Z79.1 Long term (current) use of non-steroidal anti-inflammatories (NSAID)
CPT/HCPCS: 90004